=== PATIENT | female | born 1980 | race Two or more races ===

== ENCOUNTER 2021-09-06 10:34 | Emergency (ER) | payer OTHER ==
[~2021-09-06] VITALS: Ht 152.4 cm; Wt 90.7 kg
[2021-09-06 15:30] VITALS: BP 128/82
== END 2021-09-06 15:52 | disposition home or self-care (01) ==
LOC: ER 10:34
DX: U07.1 COVID-19 (principal); J40 Bronchitis, not specified as acute or chronic; J01.90 Acute sinusitis, unspecified
CPT/HCPCS: 36415; 71045; 87426